=== PATIENT | male | born 1970 | race Caucasian/White ===

== ENCOUNTER 2017-10-16 08:38 | Outpatient (RCR) | payer MEDICARE, OTHER ==
[~2017-10-16] VITALS: Ht 168.9 cm; Wt 91.6 kg
[2017-10-16] VITALS (7 sets, daily range): BP systolic 117–140; BP diastolic 66–79
[~2017-10-16 08:38] MED LIST: Sodium Chloride 500ML 500 ML IV ONE
[2017-10-16] MEDS ORDERED: NS 500ML ONE (08:39)
[2017-10-16] MEDS ORDERED: Ketorolac 60mg Inj IM ONE (08:39)
[2017-10-16] MEDS ORDERED: Methohexital Sodium Syr 100mg/10ml IVP ONE (08:39)
[2017-10-16] MEDS ORDERED: Succinylcholine 20mg/ml 10ml vial ONE (08:39)
[2017-10-18] MEDS ORDERED: Midazolam 2mg/2ml Inj ONE (07:00)
[2017-10-18] MEDS ORDERED: Methohexital Sodium Syr 100mg/10ml IVP ONE (07:00)
[2017-10-18] MEDS ORDERED: NS 500ML ONE (07:00)
[2017-10-18] MEDS ORDERED: Succinylcholine 20mg/ml 10ml vial ONE (07:00)
[2017-10-18] MEDS ORDERED: Excedrin Migraine tab ONE (07:00)
[2017-10-18] MEDS ORDERED: Ketorolac 60mg Inj IM ONE (07:00)
[2017-10-18 08:15] VITALS: BP 120/80
[2017-10-18] MEDS ORDERED: Excedrin Migraine tab ORAL PRN (08:26)
[2017-10-18] MEDS ORDERED: Sodium Chloride 500ML 500 ML IV ONE (08:26)
[2017-10-18 08:30] VITALS: BP 150/86
[2017-10-18 08:35] VITALS: BP 135/77
[2017-10-18 08:40] VITALS: BP 129/75
[2017-10-18 08:45] VITALS: BP 130/82
[2017-10-21] MEDS ORDERED: Ketorolac 60mg Inj IM ONE (08:00)
[2017-10-21] MEDS ORDERED: Excedrin Migraine tab ONE (08:00)
[2017-10-21 08:01] VITALS: BP 114/77
[2017-10-21] MEDS ORDERED: Sodium Chloride 500ML 500 ML IV ONE (08:15)
[2017-10-21] MEDS ORDERED: Excedrin Migraine tab ORAL PRN (08:15)
[2017-10-21 08:20] VITALS: BP 145/92
[2017-10-21 08:25] VITALS: BP 122/80
[2017-10-21 08:30] VITALS: BP 121/80
[2017-10-21 08:35] VITALS: BP 129/80
[2017-10-23] MEDS ORDERED: Methohexital Sodium Syr 100mg/10ml IVP ONE (08:00)
[2017-10-23] MEDS ORDERED: NS 500ML ONE (08:00)
[2017-10-23] MEDS ORDERED: Succinylcholine 20mg/ml 10ml vial ONE (08:00)
[2017-10-23] MEDS ORDERED: Ketorolac 60mg Inj IM ONE (08:00)
[2017-10-23] MEDS ORDERED: Midazolam 2mg/2ml Inj ONE (08:00)
[2017-10-23] MEDS ORDERED: Excedrin Migraine tab ONE (08:00)
[2017-10-23 08:20] VITALS: BP 139/85
[2017-10-23] MEDS ORDERED: Excedrin Migraine tab ORAL PRN (08:34)
[2017-10-23] MEDS ORDERED: Sodium Chloride 500ML 500 ML IV ONE (08:34)
[2017-10-23 08:35] VITALS: BP 145/86
[2017-10-23 08:40] VITALS: BP 135/67
[2017-10-23 08:45] VITALS: BP 128/75
[2017-10-23 08:50] VITALS: BP 132/76
[2017-10-25 08:00] VITALS: BP 127/84
[2017-10-25] MEDS ORDERED: Succinylcholine 20mg/ml 10ml vial ONE (08:00)
[2017-10-25] MEDS ORDERED: Ketorolac 60mg Inj IM ONE (08:00)
[2017-10-25] MEDS ORDERED: NS 500ML ONE (08:00)
[2017-10-25] MEDS ORDERED: Excedrin Migraine tab ONE (08:00)
[2017-10-25] MEDS ORDERED: Methohexital Sodium Syr 100mg/10ml IVP ONE (08:00)
[2017-10-25] MEDS ORDERED: Midazolam 2mg/2ml Inj ONE (08:00)
[2017-10-25] MEDS ORDERED: Excedrin Migraine tab ORAL PRN (08:19)
[2017-10-25] MEDS ORDERED: Sodium Chloride 500ML 500 ML IV ONE (08:19)
[2017-10-25 08:20] VITALS: BP 141/91
[2017-10-25 08:25] VITALS: BP 138/76
[2017-10-25 08:30] VITALS: BP 122/87
[2017-10-25 08:35] VITALS: BP 129/77
[2017-10-28] MEDS ORDERED: Succinylcholine 20mg/ml 10ml vial ONE (07:00)
[2017-10-28] MEDS ORDERED: Excedrin Migraine tab ONE (07:00)
[2017-10-28] MEDS ORDERED: NS 500ML ONE (07:00)
[2017-10-28] MEDS ORDERED: Midazolam 2mg/2ml Inj ONE (07:00)
[2017-10-28] MEDS ORDERED: Methohexital Sodium Syr 100mg/10ml IVP ONE (07:00)
[2017-10-28] MEDS ORDERED: Ketorolac 60mg Inj IM ONE (07:00)
[2017-10-28 07:12] VITALS: BP 130/84
[2017-10-28] MEDS ORDERED: Sodium Chloride 500ML 500 ML IV ONE (07:24)
[2017-10-28] MEDS ORDERED: Excedrin Migraine tab ORAL PRN (07:24)
[2017-10-28 07:25] VITALS: BP 145/83
[2017-10-28 07:30] VITALS: BP 139/80
[2017-10-28 07:35] VITALS: BP 145/83
[2017-10-28 07:40] VITALS: BP 135/80
[2017-10-30] MEDS ORDERED: Midazolam 2mg/2ml Inj ONE (07:00)
[2017-10-30] MEDS ORDERED: Excedrin Migraine tab ONE (07:00)
[2017-10-30] MEDS ORDERED: Succinylcholine 20mg/ml 10ml vial ONE (07:00)
[2017-10-30] MEDS ORDERED: Methohexital Sodium Syr 100mg/10ml IVP ONE (07:00)
[2017-10-30] MEDS ORDERED: NS 500ML ONE (07:00)
[2017-10-30] MEDS ORDERED: Ketorolac 60mg Inj IM ONE (07:00)
[2017-10-30 08:25] VITALS: BP 120/80
[2017-10-30] MEDS ORDERED: Sodium Chloride 500ML 500 ML IV ONE (08:38)
[2017-10-30] MEDS ORDERED: Excedrin Migraine tab ORAL PRN (08:38)
[2017-10-30 08:40] VITALS: BP 139/85
[2017-10-30 08:45] VITALS: BP 136/85
[2017-10-30 08:50] VITALS: BP 129/82
[2017-10-30 08:54] VITALS: BP 130/76
[2017-11-01] MEDS ORDERED: Midazolam 2mg/2ml Inj ONE (07:00)
[2017-11-01] MEDS ORDERED: Esmolol 100mg/10ml Inj ONE (07:00)
[2017-11-01] MEDS ORDERED: NS 500ML ONE (07:00)
[2017-11-01] MEDS ORDERED: Succinylcholine 20mg/ml 10ml vial ONE (07:00)
[2017-11-01] MEDS ORDERED: Ketorolac 60mg Inj IM ONE (07:00)
[2017-11-01] MEDS ORDERED: Excedrin Migraine tab ONE (07:00)
[2017-11-01 07:58] VITALS: BP 121/81
[2017-11-01] MEDS ORDERED: Sodium Chloride 500ML 500 ML IV ONE (08:11)
[2017-11-01] MEDS ORDERED: Excedrin Migraine tab ORAL PRN (08:11)
[2017-11-01 08:15] VITALS: BP 136/86
[2017-11-01 08:20] VITALS: BP 113/73
[2017-11-01 08:25] VITALS: BP 119/77
[2017-11-01 08:30] VITALS: BP 123/76
[2017-11-04] MEDS ORDERED: NS 500ML ONE (07:00)
[2017-11-04] MEDS ORDERED: Ketorolac 60mg Inj IM ONE (07:00)
[2017-11-04] MEDS ORDERED: Methohexital Sodium Syr 100mg/10ml IVP ONE (07:00)
[2017-11-04] MEDS ORDERED: Succinylcholine 20mg/ml 10ml vial ONE (07:00)
[2017-11-04] MEDS ORDERED: Excedrin Migraine tab ONE (07:00)
[2017-11-04] MEDS ORDERED: Midazolam 2mg/2ml Inj ONE (07:00)
[2017-11-04] MEDS ORDERED: Sodium Chloride 500ML 500 ML IV ONE (09:00)
[2017-11-04] MEDS ORDERED: Excedrin Migraine tab ORAL PRN (09:00)
[2017-11-04 09:15] VITALS: BP_SYST 127; BP_SYST 142; BP_DIAS 82; BP_DIAS 84
[2017-11-04 09:20] VITALS: BP 134/69
[2017-11-04 09:25] VITALS: BP 130/66
[2017-11-04 09:30] VITALS: BP 130/66
[2017-11-06] MEDS ORDERED: Ketorolac 60mg Inj IM ONE (07:00)
[2017-11-06] MEDS ORDERED: NS 500ML ONE (07:00)
[2017-11-06] MEDS ORDERED: Succinylcholine 20mg/ml 10ml vial ONE (07:00)
[2017-11-06] MEDS ORDERED: Midazolam 2mg/2ml Inj ONE (07:00)
[2017-11-06] MEDS ORDERED: Excedrin Migraine tab ONE (07:00)
[2017-11-06] MEDS ORDERED: Methohexital Sodium Syr 100mg/10ml IVP ONE (07:00)
[2017-11-06 08:14] VITALS: BP 114/83
[2017-11-06] MEDS ORDERED: Sodium Chloride 500ML 500 ML IV ONE (08:27)
[2017-11-06] MEDS ORDERED: Excedrin Migraine tab ORAL PRN (08:27)
[2017-11-06 08:30] VITALS: BP 136/86
[2017-11-06 08:35] VITALS: BP 132/82
[2017-11-06 08:40] VITALS: BP 126/72
[2017-11-06 08:45] VITALS: BP 124/66
[2017-11-08] MEDS ORDERED: Succinylcholine 20mg/ml 10ml vial ONE (06:00)
[2017-11-08] MEDS ORDERED: NS 500ML ONE (06:00)
[2017-11-08] MEDS ORDERED: Excedrin Migraine tab ONE (06:00)
[2017-11-08] MEDS ORDERED: Methohexital Sodium Syr 100mg/10ml IVP ONE (06:00)
[2017-11-08] MEDS ORDERED: Midazolam 2mg/2ml Inj ONE (06:00)
[2017-11-08] MEDS ORDERED: Ketorolac 60mg Inj IM ONE (06:00)
[2017-11-08 07:52] VITALS: BP 130/87
[2017-11-08] MEDS ORDERED: Sodium Chloride 500ML 500 ML IV ONE (08:08)
[2017-11-08] MEDS ORDERED: Excedrin Migraine tab ORAL PRN (08:08)
[2017-11-08 08:10] VITALS: BP 150/93
[2017-11-08 08:15] VITALS: BP 137/81
[2017-11-08 08:20] VITALS: BP 132/76
[2017-11-08 08:25] VITALS: BP 130/70
== END 2017-11-10 | disposition home or self-care (01) ==
LOC: ECT 08:38 → MERGE 08:38
DX: F33.2 Major depressive disorder, recurrent severe without psychotic features (principal); B20 Human immunodeficiency virus [HIV] disease
CPT/HCPCS: 90870; J0330; J2250; J7040

== ENCOUNTER 2017-11-11 06:36 | Outpatient (RCR) | payer MEDICARE, OTHER ==
[~2017-11-11] VITALS: Ht 167.6 cm; Wt 91.6 kg
[2017-11-11] MEDS ORDERED: NS 500ML ONE ×2 (06:37)
[2017-11-11] MEDS ORDERED: Midazolam 2mg/2ml Inj ONE ×2 (06:37)
[2017-11-11] MEDS ORDERED: Ketorolac 60mg Inj IM ONE ×2 (06:37)
[2017-11-11] MEDS ORDERED: Excedrin Migraine tab ONE ×2 (06:37)
[2017-11-11] MEDS ORDERED: Methohexital Sodium Syr 100mg/10ml IVP ONE ×2 (06:37)
[2017-11-11] MEDS ORDERED: Succinylcholine 20mg/ml 10ml vial ONE ×2 (06:37)
[2017-11-11 08:22] VITALS: BP 114/82
[2017-11-11] MEDS ORDERED: Excedrin Migraine tab ORAL PRN (08:34)
[2017-11-11] MEDS ORDERED: Sodium Chloride 500ML 500 ML IV ONE (08:34)
[2017-11-11 08:35] VITALS: BP 142/82
[2017-11-11 08:40] VITALS: BP 137/83
[2017-11-11 08:45] VITALS: BP 121/74
[2017-11-11 08:50] VITALS: BP 124/79
[2017-11-15 07:14] VITALS: BP 121/81
[2017-11-15 07:35] VITALS: BP 155/90
[2017-11-15 07:40] VITALS: BP 146/87
[2017-11-15 07:45] VITALS: BP 119/81
[2017-11-15 07:50] VITALS: BP 129/78
[2017-11-18 07:36] VITALS: BP 132/89
[2017-11-18] MEDS ORDERED: Excedrin Migraine tab ORAL PRN (07:51)
[2017-11-18] MEDS ORDERED: Sodium Chloride 500ML 500 ML IV ONE (07:51)
[2017-11-18 07:55] VITALS: BP 134/83
[2017-11-18 08:00] VITALS: BP 125/74
[2017-11-18 08:05] VITALS: BP 122/75
[2017-11-18 08:10] VITALS: BP 121/73
[2017-11-25] MEDS ORDERED: NS 500ML ONE (06:00)
[2017-11-25] MEDS ORDERED: Succinylcholine 20mg/ml 10ml vial ONE (06:00)
[2017-11-25] MEDS ORDERED: Excedrin Migraine tab ONE (06:00)
[2017-11-25] MEDS ORDERED: Methohexital Sodium Syr 100mg/10ml IVP ONE (06:00)
[2017-11-25] MEDS ORDERED: Midazolam 2mg/2ml Inj ONE (06:00)
[2017-11-25] MEDS ORDERED: Ketorolac 60mg Inj IM ONE (06:00)
[2017-11-25] MEDS ORDERED: Excedrin Migraine tab ORAL PRN (07:54)
[2017-11-25] MEDS ORDERED: Sodium Chloride 500ML 500 ML IV ONE (07:54)
[2017-11-25 07:55] VITALS: BP 120/79
[2017-11-25 08:00] VITALS: BP 143/84
[2017-11-25 08:05] VITALS: BP 130/80
[2017-11-25 08:10] VITALS: BP 129/74
[2017-12-09 07:43] VITALS: BP 115/81
[2017-12-09] MEDS ORDERED: Sodium Chloride 500ML 500 ML IV ONE (08:04)
[2017-12-09] MEDS ORDERED: Atropine Sulfate 0.4mg/ml inj IVP PRN (08:04)
[2017-12-09] MEDS ORDERED: Excedrin Migraine tab ORAL PRN (08:04)
[2017-12-09 08:05] VITALS: BP 130/70
[2017-12-09 08:10] VITALS: BP 117/69
[2017-12-09 08:15] VITALS: BP 117/63
[2017-12-09 08:20] VITALS: BP 119/68
[2017-12-11] MEDS ORDERED: Midazolam 2mg/2ml Inj ONE (07:00)
[2017-12-11] MEDS ORDERED: NS 500ML ONE (07:00)
[2017-12-11] MEDS ORDERED: Excedrin Migraine tab ONE (07:00)
[2017-12-11] MEDS ORDERED: Methohexital Sodium Syr 100mg/10ml IVP ONE (07:00)
[2017-12-11] MEDS ORDERED: Succinylcholine 20mg/ml 10ml vial ONE (07:00)
[2017-12-11] MEDS ORDERED: Ketorolac 60mg Inj IM ONE (07:00)
== END 2017-12-11 | disposition home or self-care (01) ==
LOC: ECT 06:36
DX: F33.2 Major depressive disorder, recurrent severe without psychotic features (principal)
CPT/HCPCS: 90870; J0330; J2250; J7040

== ENCOUNTER 2017-12-30 04:38 | Outpatient (RCR) | payer MEDICARE, OTHER ==
[~2017-12-30] VITALS: Ht 30.5 cm; Wt 0.5 kg
[2017-12-30] MEDS ORDERED: Midazolam 2mg/2ml Inj ONE (04:39)
[2017-12-30] MEDS ORDERED: Excedrin Migraine tab ONE ×2 (04:39)
[2017-12-30] MEDS ORDERED: Methohexital Sodium Syr 100mg/10ml IVP ONE ×2 (04:39)
[2017-12-30] MEDS ORDERED: NS 500ML ONE ×2 (04:39)
[2017-12-30] MEDS ORDERED: Ketorolac 60mg Inj IM ONE ×2 (04:39)
[2017-12-30] MEDS ORDERED: Succinylcholine 20mg/ml 10ml vial ONE ×2 (04:39)
[2017-12-30 07:47] VITALS: BP 108/76
[2017-12-30] MEDS ORDERED: Sodium Chloride 500ML 500 ML IV ONE (08:03)
[2017-12-30 08:05] VITALS: BP 129/75
[2017-12-30 08:08] VITALS: BP 129/75
[2017-12-30 08:10] VITALS: BP 124/98
[2017-12-30 08:15] VITALS: BP 119/64
[2017-12-30 08:20] VITALS: BP 122/82
[2018-01-08 07:09] VITALS: BP 117/86
[2018-01-08] MEDS ORDERED: Sodium Chloride 500ML 500 ML IV ONE (07:27)
[2018-01-08] MEDS ORDERED: Excedrin Migraine tab ORAL PRN (07:27)
[2018-01-08 07:30] VITALS: BP 141/82
[2018-01-08 07:35] VITALS: BP 130/74
[2018-01-08 07:40] VITALS: BP 122/78
[2018-01-08 07:45] VITALS: BP 119/72
== END 2018-01-10 | disposition home or self-care (01) ==
LOC: ECT 04:38
DX: F33.2 Major depressive disorder, recurrent severe without psychotic features (principal)
CPT/HCPCS: 90870; J0330; J2250; J7040

== ENCOUNTER 2018-01-27 07:02 | Outpatient (RCR) | payer MEDICARE, OTHER ==
[~2018-01-27] VITALS: Ht 30.5 cm; Wt 0.5 kg
[2018-01-27] MEDS ORDERED: Midazolam 2mg/2ml Inj ONE (07:03)
[2018-01-27] MEDS ORDERED: NS 500ML ONE (07:03)
[2018-01-27] MEDS ORDERED: Ketorolac 60mg Inj IM ONE (07:03)
[2018-01-27] MEDS ORDERED: Succinylcholine 20mg/ml 10ml vial ONE (07:03)
[2018-01-27] MEDS ORDERED: Excedrin Migraine tab ONE (07:03)
[2018-01-27] MEDS ORDERED: Methohexital Sodium Syr 100mg/10ml IVP ONE (07:03)
[2018-01-27 07:33] VITALS: BP 126/79
[2018-01-27] MEDS ORDERED: Excedrin Migraine tab ORAL PRN (07:49)
[2018-01-27] MEDS ORDERED: Sodium Chloride 500ML 500 ML IV ONE (07:49)
[2018-01-27 07:50] VITALS: BP 141/70
[2018-01-27 07:55] VITALS: BP 133/87
[2018-01-27 08:00] VITALS: BP 130/79
[2018-01-27 08:05] VITALS: BP 129/74
== END 2018-02-10 | disposition home or self-care (01) ==
LOC: ECT 07:02
DX: F33.2 Major depressive disorder, recurrent severe without psychotic features (principal); E66.9 Obesity, unspecified; F17.200 Nicotine dependence, unspecified, uncomplicated; Z21 Asymptomatic human immunodeficiency virus [HIV] infection status
CPT/HCPCS: 90870; J0330; J2250; J7040

== ENCOUNTER 2018-02-25 05:50 | Outpatient (RCR) | payer MEDICARE, MEDICAID ==
[~2018-02-25] VITALS: Ht 30.5 cm; Wt 0.5 kg
[2018-02-25] MEDS ORDERED: Excedrin Migraine tab ONE (05:51)
[2018-02-25] MEDS ORDERED: Ketorolac 60mg Inj IM ONE (05:51)
[2018-02-25] MEDS ORDERED: NS 500ML ONE (05:51)
[2018-02-25] MEDS ORDERED: Midazolam 2mg/2ml Inj ONE (05:51)
[2018-02-25] MEDS ORDERED: Succinylcholine 20mg/ml 10ml vial ONE (05:51)
[2018-02-25] MEDS ORDERED: Methohexital Sodium Syr 100mg/10ml IVP ONE (05:51)
[2018-03-03] MEDS ORDERED: Excedrin Migraine tab ORAL PRN (07:58)
[2018-03-03 08:00] VITALS: BP_SYST 116; BP_SYST 137; BP_DIAS 79; BP_DIAS 87
[2018-03-03 08:05] VITALS: BP 130/84
[2018-03-03 08:10] VITALS: BP 127/71
[2018-03-03 08:15] VITALS: BP 125/76
== END 2018-03-13 | disposition home or self-care (01) ==
LOC: ECT 05:50
DX: F33.2 Major depressive disorder, recurrent severe without psychotic features (principal)
CPT/HCPCS: 90870; J0330; J2250; J7040

== ENCOUNTER 2018-03-31 04:45 | Outpatient (RCR) | payer MEDICARE, OTHER ==
[~2018-03-31] VITALS: Ht 30.5 cm; Wt 0.5 kg
[2018-03-31] MEDS ORDERED: Ketorolac 60mg Inj IM ONE (04:46)
[2018-03-31] MEDS ORDERED: Excedrin Migraine tab ONE (04:46)
[2018-03-31] MEDS ORDERED: NS 500ML ONE (04:46)
[2018-03-31] MEDS ORDERED: Midazolam 2mg/2ml Inj ONE (04:46)
[2018-03-31] MEDS ORDERED: Methohexital Sodium Syr 100mg/10ml IVP ONE (04:46)
[2018-03-31] MEDS ORDERED: Succinylcholine 20mg/ml 10ml vial ONE (04:46)
[2018-03-31 07:38] VITALS: BP 123/76
[2018-03-31] MEDS ORDERED: Excedrin Migraine tab ORAL PRN (07:50)
[2018-03-31 07:55] VITALS: BP 132/72
[2018-03-31 08:00] VITALS: BP 121/80
[2018-03-31 08:05] VITALS: BP 124/71
[2018-03-31 08:10] VITALS: BP 125/83
[2018-04-09] MEDS ORDERED: Succinylcholine 20mg/ml 10ml vial ONE (06:00)
[2018-04-09] MEDS ORDERED: Methohexital Sodium Syr 100mg/10ml IVP ONE (06:00)
[2018-04-09] MEDS ORDERED: Midazolam 2mg/2ml Inj ONE (06:00)
[2018-04-09] MEDS ORDERED: NS 500ML ONE (06:00)
[2018-04-09] MEDS ORDERED: Excedrin Migraine tab ONE (06:00)
[2018-04-09] MEDS ORDERED: Ketorolac 60mg Inj IM ONE (06:00)
[2018-04-09 09:11] VITALS: BP 119/79
[2018-04-09] MEDS ORDERED: Excedrin Migraine tab ORAL PRN (09:28)
[2018-04-09 09:30] VITALS: BP 126/47
[2018-04-09 09:35] VITALS: BP 131/78
[2018-04-09 09:40] VITALS: BP 128/78
[2018-04-09 09:45] VITALS: BP 129/73
[2018-04-10] MEDS ORDERED: Succinylcholine 20mg/ml 10ml vial ONE ×2 (13:28→22:48)
[2018-04-10] MEDS ORDERED: Excedrin Migraine tab ONE (22:48)
[2018-04-10] MEDS ORDERED: Ketorolac 60mg Inj IM ONE (22:48)
[2018-04-10] MEDS ORDERED: Midazolam 2mg/2ml Inj ONE (22:48)
[2018-04-10] MEDS ORDERED: Methohexital Sodium Syr 100mg/10ml IVP ONE (22:48)
[2018-04-10] MEDS ORDERED: NS 500ML ONE (22:48)
== END 2018-04-10 | disposition home or self-care (01) ==
LOC: ECT 04:45
DX: F33.2 Major depressive disorder, recurrent severe without psychotic features (principal)
CPT/HCPCS: 90870; J0330; J2250; J7040

== ENCOUNTER 2018-04-14 06:28 | Outpatient (RCR) | payer MEDICARE, OTHER ==
[~2018-04-14] VITALS: Ht 30.5 cm; Wt 0.5 kg
[2018-04-14] MEDS ORDERED: Excedrin Migraine tab ONE ×2 (06:29)
[2018-04-14] MEDS ORDERED: Midazolam 2mg/2ml Inj ONE ×2 (06:29)
[2018-04-14] MEDS ORDERED: NS 500ML ONE ×2 (06:29)
[2018-04-14] MEDS ORDERED: Succinylcholine 20mg/ml 10ml vial ONE ×2 (06:29)
[2018-04-14] MEDS ORDERED: Ketorolac 60mg Inj IM ONE ×2 (06:29)
[2018-04-14] MEDS ORDERED: Methohexital Sodium Syr 100mg/10ml IVP ONE ×2 (06:29)
[2018-04-14 08:09] VITALS: BP 115/76
[2018-04-14] MEDS ORDERED: Excedrin Migraine tab ORAL PRN (08:22)
[2018-04-14 08:25] VITALS: BP 133/80
[2018-04-14 08:30] VITALS: BP 123/74
[2018-04-14 08:35] VITALS: BP 123/70
[2018-04-14 08:40] VITALS: BP 127/65
[2018-04-16 08:09] VITALS: BP 121/79
[2018-04-16] MEDS ORDERED: Excedrin Migraine tab ORAL PRN (08:23)
[2018-04-16 08:25] VITALS: BP 132/72
[2018-04-16 08:30] VITALS: BP 135/84
[2018-04-16 08:35] VITALS: BP 141/61
[2018-04-16 08:40] VITALS: BP 129/71
[2018-04-21] MEDS ORDERED: Methohexital Sodium Syr 100mg/10ml IVP ONE (06:30)
[2018-04-21] MEDS ORDERED: Succinylcholine 20mg/ml 10ml vial ONE (06:30)
[2018-04-21] MEDS ORDERED: NS 500ML ONE (06:30)
[2018-04-21] MEDS ORDERED: Ketorolac 60mg Inj IM ONE (06:30)
[2018-04-21] MEDS ORDERED: Midazolam 2mg/2ml Inj ONE (06:30)
[2018-04-21] MEDS ORDERED: Excedrin Migraine tab ONE (06:30)
[2018-04-21 08:22] VITALS: BP 123/87
[2018-04-21] MEDS ORDERED: Excedrin Migraine tab ORAL PRN (08:36)
[2018-04-21 08:40] VITALS: BP 140/85
[2018-04-21 08:45] VITALS: BP 138/74
[2018-04-21 08:50] VITALS: BP 137/82
[2018-04-21 08:55] VITALS: BP 134/79
[2018-05-05] MEDS ORDERED: Midazolam 2mg/2ml Inj ONE (06:00)
[2018-05-05] MEDS ORDERED: Excedrin Migraine tab ONE (06:00)
[2018-05-05] MEDS ORDERED: Succinylcholine 20mg/ml 10ml vial ONE (06:00)
[2018-05-05] MEDS ORDERED: Methohexital Sodium Syr 100mg/10ml IVP ONE (06:00)
[2018-05-05] MEDS ORDERED: Ketorolac 60mg Inj IM ONE (06:00)
[2018-05-05] MEDS ORDERED: NS 500ML ONE (06:00)
[2018-05-05 08:08] VITALS: BP 109/72
[2018-05-05] MEDS ORDERED: Atropine Sulfate 0.4mg/ml inj IVP PRN (08:28)
[2018-05-05] MEDS ORDERED: Excedrin Migraine tab ORAL PRN (08:28)
[2018-05-05 08:30] VITALS: BP 143/70
[2018-05-05 08:35] VITALS: BP 129/82
[2018-05-05 08:40] VITALS: BP 137/67
[2018-05-05 08:45] VITALS: BP 128/74
== END 2018-05-11 | disposition home or self-care (01) ==
LOC: ECT 06:28
DX: F33.2 Major depressive disorder, recurrent severe without psychotic features (principal)
CPT/HCPCS: 90870; J0330; J2250; J7040

== ENCOUNTER 2018-05-26 07:12 | Outpatient (RCR) | payer MEDICARE, OTHER ==
[~2018-05-26] VITALS: Ht 168.9 cm; Wt 91.6 kg
[2018-05-26] MEDS ORDERED: Midazolam 2mg/2ml Inj ONE (07:13)
[2018-05-26] MEDS ORDERED: Ketorolac 60mg Inj IM ONE (07:13)
[2018-05-26] MEDS ORDERED: Methohexital Sodium Syr 100mg/10ml IVP ONE (07:13)
[2018-05-26] MEDS ORDERED: NS 500ML ONE (07:13)
[2018-05-26] MEDS ORDERED: Excedrin Migraine tab ONE (07:13)
[2018-05-26] MEDS ORDERED: Succinylcholine 20mg/ml 10ml vial ONE (07:13)
[2018-05-26 07:39] VITALS: BP 124/82
[2018-05-26 07:55] VITALS: BP 153/84
[2018-05-26] MEDS ORDERED: Excedrin Migraine tab ORAL PRN (07:55)
[2018-05-26 08:00] VITALS: BP 127/76
[2018-05-26 08:05] VITALS: BP 130/76
[2018-05-26 08:10] VITALS: BP 111/48
== END 2018-06-10 | disposition home or self-care (01) ==
LOC: ECT 07:12
DX: F33.2 Major depressive disorder, recurrent severe without psychotic features (principal)
CPT/HCPCS: 90870; J0330; J2250; J7040

== ENCOUNTER 2018-06-23 09:12 | Outpatient (RCR) | payer MEDICARE, OTHER ==
[~2018-06-23] VITALS: Ht 30.5 cm; Wt 0.5 kg
[2018-06-23 08:20] VITALS: BP 122/82
[2018-06-23 08:35] VITALS: BP 146/69
[2018-06-23 08:40] VITALS: BP 133/80
[2018-06-23 08:45] VITALS: BP 129/80
[2018-06-23 08:50] VITALS: BP 127/77
[~2018-06-23 09:12] MED LIST changes: +Excedrin Migraine tab ORAL PRN; -Sodium Chloride 500ML 500 ML IV ONE
[2018-06-23] MEDS ORDERED: Midazolam 2mg/2ml Inj ONE (09:13)
[2018-06-23] MEDS ORDERED: NS 500ML ONE (09:13)
[2018-06-23] MEDS ORDERED: Excedrin Migraine tab ONE (09:13)
[2018-06-23] MEDS ORDERED: Succinylcholine 20mg/ml 10ml vial ONE (09:13)
[2018-06-23] MEDS ORDERED: Ketorolac 60mg Inj IM ONE (09:13)
[2018-06-23] MEDS ORDERED: Methohexital Sodium Syr 100mg/10ml IVP ONE (09:13)
== END 2018-07-11 | disposition home or self-care (01) ==
LOC: ECT 09:12
DX: F33.2 Major depressive disorder, recurrent severe without psychotic features (principal)
CPT/HCPCS: 90870; J0330; J2250; J7040

== ENCOUNTER 2018-07-23 05:17 | Outpatient (RCR) | payer MEDICARE, OTHER ==
[~2018-07-23] VITALS: Ht 30.5 cm; Wt 0.5 kg
[2018-07-23] MEDS ORDERED: Methohexital Sodium 500mg Vial IVP ONE (05:18)
[2018-07-23] MEDS ORDERED: Midazolam 2mg/2ml Inj ONE (05:18)
[2018-07-23] MEDS ORDERED: Excedrin tab (non formulary) ONE (05:18)
[2018-07-23] MEDS ORDERED: NS 500ML ONE (05:18)
[2018-07-23] MEDS ORDERED: Succinylcholine 20mg/ml 10ml vial ONE (05:18)
[2018-07-23] MEDS ORDERED: Ketorolac 60mg Inj IM ONE (05:18)
[2018-07-23 08:13] VITALS: BP 107/82
[2018-07-23 08:28] VITALS: BP 132/69
[2018-07-23] MEDS ORDERED: Excedrin Migraine tab ORAL PRN (08:28)
[2018-07-23 08:33] VITALS: BP 125/62
[2018-07-23 08:38] VITALS: BP 131/81
[2018-07-23 08:43] VITALS: BP 127/71
== END 2018-08-10 | disposition home or self-care (01) ==
LOC: ECT 05:17
DX: F33.2 Major depressive disorder, recurrent severe without psychotic features (principal)
CPT/HCPCS: 90870; J0330; J2250; J3490; J7040

== ENCOUNTER 2018-08-20 04:22 | Outpatient (RCR) | payer MEDICARE, OTHER ==
[~2018-08-20] VITALS: Ht 168.9 cm; Wt 91.6 kg
[2018-08-20] MEDS ORDERED: Excedrin Migraine tab ONE (06:00)
[2018-08-20] MEDS ORDERED: Succinylcholine 20mg/ml 10ml vial ONE (06:00)
[2018-08-20] MEDS ORDERED: NS 500ML ONE (06:00)
[2018-08-20] MEDS ORDERED: Methohexital Sodium Syr 100mg/10ml IVP ONE (06:00)
[2018-08-20] MEDS ORDERED: Midazolam 2mg/2ml Inj ONE (06:00)
[2018-08-20] MEDS ORDERED: Ketorolac 30mg Inj ONE (06:00)
[2018-08-20 08:03] VITALS: BP 124/77
[2018-08-20] MEDS ORDERED: Excedrin Migraine tab ORAL PRN (08:20)
[2018-08-20 08:21] VITALS: BP 130/75
[2018-08-20 08:26] VITALS: BP 122/67
[2018-08-20 08:31] VITALS: BP 123/75
[2018-08-20 08:36] VITALS: BP 130/68
== END 2018-09-10 | disposition home or self-care (01) ==
LOC: ECT 04:22
DX: F33.2 Major depressive disorder, recurrent severe without psychotic features (principal)
CPT/HCPCS: 90870; J0330; J1885; J2250; J7040

== ENCOUNTER 2018-09-17 04:40 | Outpatient (RCR) | payer MEDICARE, OTHER ==
[~2018-09-17] VITALS: Ht 167.6 cm; Wt 91.6 kg
[2018-09-17] MEDS ORDERED: Excedrin Migraine tab ONE (06:00)
[2018-09-17] MEDS ORDERED: Succinylcholine 20mg/ml 10ml vial ONE (06:00)
[2018-09-17] MEDS ORDERED: NS 500ML ONE (06:00)
[2018-09-17] MEDS ORDERED: Methohexital Sodium Syr 100mg/10ml IVP ONE (06:00)
[2018-09-17] MEDS ORDERED: Ketorolac 60mg Inj IM ONE (06:00)
[2018-09-17] MEDS ORDERED: Midazolam 2mg/2ml Inj ONE (06:00)
[2018-09-17 07:45] VITALS: BP 112/78
[2018-09-17] MEDS ORDERED: Excedrin Migraine tab ORAL PRN (07:58)
[2018-09-17 08:00] VITALS: BP 123/63
[2018-09-17 08:05] VITALS: BP 129/78
[2018-09-17 08:10] VITALS: BP 134/76
[2018-09-17 08:15] VITALS: BP 134/67
== END 2018-10-11 | disposition home or self-care (01) ==
LOC: ECT 04:40
DX: F33.2 Major depressive disorder, recurrent severe without psychotic features (principal)
CPT/HCPCS: 90870; J0330; J2250; J7040

== ENCOUNTER 2018-10-15 05:15 | Outpatient (RCR) | payer MEDICARE, OTHER ==
[~2018-10-15] VITALS: Ht 30.5 cm; Wt 0.5 kg
[2018-10-15] MEDS ORDERED: Midazolam 2mg/2ml Inj ONE (05:16)
[2018-10-15] MEDS ORDERED: Succinylcholine 20mg/ml 10ml vial ONE (05:16)
[2018-10-15] MEDS ORDERED: NS 500ML ONE (05:16)
[2018-10-15] MEDS ORDERED: Ketorolac 60mg Inj IM ONE (05:16)
[2018-10-15] MEDS ORDERED: Excedrin Migraine tab ONE (05:16)
[2018-10-15] MEDS ORDERED: Methohexital Sodium Syr 100mg/10ml IVP ONE (05:16)
[2018-10-15 08:12] VITALS: BP 124/89
[2018-10-15] MEDS ORDERED: Excedrin Migraine tab ORAL PRN (08:29)
[2018-10-15 08:30] VITALS: BP 131/73
[2018-10-15 08:35] VITALS: BP 134/64
[2018-10-15 08:40] VITALS: BP 141/74
[2018-10-15 08:45] VITALS: BP 134/81
== END 2018-11-10 | disposition home or self-care (01) ==
LOC: ECT 05:15
DX: F33.2 Major depressive disorder, recurrent severe without psychotic features (principal)
CPT/HCPCS: 90870; J0330; J2250; J7040

== ENCOUNTER 2018-11-12 04:46 | Outpatient (RCR) | payer MEDICARE, OTHER | END 2018-12-11 | disposition home or self-care (01) | LOC: ECT 04:46 | DX: Z53.9 Procedure and treatment not carried out, unspecified reason (principal) ==